=== PATIENT | male | born 1930 | race Caucasian/White ===

== ENCOUNTER 2018-10-08 14:03 | Emergency (ER) | payer MEDICARE ==
--- NOTE | 2018-10-08 14:56 | RAD ---
Exam: Chest 2 views HISTORY:Cough Comparison: 03/31/2010 FINDINGS: Lungs: No masses or consolidation. Left-sided chest port is in place with tip overlying SVC. Implant bowel loop recorder overlies left c hest. Cardiac silhouette:Borderline in size. Vascular calcification. Pulmonary vessels: Normal Pleural Spaces: Clear Pneumothorax: None Osseous abnormalities: None of acuity. IMPRESSION: No focal consolidation.
== END 2018-10-08 15:18 | disposition home or self-care (01) ==
LOC: MADERS 14:03
DX: R05 Cough (principal); K21.9 Gastro-esophageal reflux disease without esophagitis; N40.0 Benign prostatic hyperplasia without lower urinary tract symptoms; Z79.899 Other long term (current) drug therapy
CPT/HCPCS: 71046